=== PATIENT | male | born 1975 | race Hispanic/Latino ===

== ENCOUNTER → 2018-12-06 | Outpatient (CLI) | payer BC, MEDICARE | END | disposition home or self-care (01) | LOC: OIH 11:17 | PROVIDERS: ATTEND Internal Medicine Cardiovascular Disease | DX: R07.89 Other chest pain (principal) | CPT/HCPCS: 72040 ==

== ENCOUNTER → 2022-04-29 | Outpatient (CLI) | payer OTHER | END | disposition home or self-care (01) | LOC: RAH 13:32 | PROVIDERS: ATTEND Internal Medicine Cardiovascular Disease | DX: Z13.6 Encounter for screening for cardiovascular disorders (principal); I51.5 Myocardial degeneration | CPT/HCPCS: 75571 ==

== ENCOUNTER → 2022-05-04 | Outpatient (CLI) | payer BC, MEDICARE | END | disposition home or self-care (01) | LOC: SHCH 08:25 | PROVIDERS: ATTEND Internal Medicine Cardiovascular Disease | DX: E78.5 Hyperlipidemia, unspecified (principal); R06.00 Dyspnea, unspecified | CPT/HCPCS: 93306 ==

== ENCOUNTER → 2024-07-15 | Outpatient (CLI) | payer BC, OTHER ==
--- NOTE | 2024-07-15 09:33 | HMCIMG ---
CHEST 2VWS REASON: Other forms of dyspnea/Other fatigue COMPARISON: None FINDINGS: Two views of the chest were obtained. Lungs are clear. Heart size is normal. There is no pulmonary vascular congestion. Mediastinum and bony thorax appear unremarkable. IMPRESSION: Normal two view chest x-ray.
== END | disposition home or self-care (01) ==
LOC: RAH 08:57
PROVIDERS: ATTEND Internal Medicine Cardiovascular Disease
DX: R06.09 Other forms of dyspnea (principal); R53.83 Other fatigue
CPT/HCPCS: 71046

== ENCOUNTER → 2024-07-27 | Outpatient (CLI) | payer BC, OTHER ==
--- NOTE | 2024-07-29 16:38 | HMCSR ---
APPROVED REPORT EXAM: Two-dimensional and M-mode echocardiogram with Doppler and color Doppler. INDICATION ICD: R06.09 Other forms of dyspnea R53.83 Fatigue, I47.19 [place] Tachycardia 2D Dimensions RVDd4.0 cmLVEF(%)58.3 (>50%)LVED Vol(simp.)106.0 mL IVSd1.0 (0.7-1.1cm)FS(%)31 %LVES Vol(simp.)49.0 mL LVDd4.8 (3.8-5.6cm)Ao Root(2D)3.1 (2.0-3.7cm)LVEF(%, simp.)54 % PWd1.0 (0.7-1.1cm)LVOT diam2.0 (1.8-2.4cm)LA ESV INDEX (BP)19.79 mL/m2 LVDs3.3 (2.5-4.0cm) Aortic Valve AoV Vmax1.3 m/Chaya Peak GR6.3 mmHgLVOT Vmax1.1 m/s AoV VTI0.2 mAo Mean GR3.3 mmHgLVOT VTI0.21 m RUSSELL (VMAX)3.0 cm2AVA (VTI) 3.0 cm2 Mitral Valve MV E Vmax47.4 cm/sDECEL Gywh154 ms MV A Vmax56.3 cm/sP 1/2 T55 ms E/A ratio0.8MVA (PHT)4.0 cm2 TDI E/E' Medial7.4E/E' Lateral4.8 Pulmonary Valve PV Vmax1.3 m/sPV VTI0.21 mPV Mean GR3 mmHg PV Peak GR6.6 mmHg Tricuspid Valve RAP (EST) 8 mmHg Left Ventricle The left ventricle structure and function is normal. There is normal LV segmental wall motion. There is normal left ventricular wall thickness. LVEF is 50-55%. Grade 1 diastolic dysfunction Right Ventricle The right ventricle is normal size. Right ventricular systolic function is moderately reduced. Atria The left atrium size is normal. The right atrium size is normal. Aortic Valve Aortic valve is trileaflet. Aortic valve leaflets are sclerotic but open well. Trace aortic regurgita tion. There is no aortic valvular stenosis. Mitral Valve Mitral valve leaflets appear normal. Mitral regurgitation is trace. There is no mitral valve stenosis . Tricuspid Valve The tricuspid valve leaflets appear normal. There is trace tricuspid regurgitation. Pulmonic Valve The pulmonic valve leaflets are thin and pliable; valve motion is normal. There is trace pulmonic deepthi vular regurgitation. Great Vessels The aortic root is normal in size. IVC is not well visualized. Pericardium No pericardial effusion. Conclusion LVEF is 50-55%. Grade 1 diastolic dysfunction
== END | disposition home or self-care (01) ==
LOC: SHCH 13:01
PROVIDERS: ATTEND Internal Medicine Cardiovascular Disease
DX: I51.89 Other ill-defined heart diseases (principal); I47.19 Other supraventricular tachycardia; R06.09 Other forms of dyspnea; R53.83 Other fatigue
CPT/HCPCS: 93306

== ENCOUNTER → 2024-08-09 | Outpatient (CLI) | payer BC, OTHER ==
[2024-08-09] MEDS: REGADENOSON 0.4 MG/5 ML PF SYG IVP ONE (11:29)
== END | disposition home or self-care (01) ==
LOC: SHCH 07:38
PROVIDERS: ATTEND Internal Medicine Cardiovascular Disease
DX: I47.19 Other supraventricular tachycardia (principal); R06.09 Other forms of dyspnea; R53.83 Other fatigue
CPT/HCPCS: 78452; 93017; J2785; A9500 ×2